=== PATIENT | female | born 1960 | race Caucasian/White ===

== ENCOUNTER 2018-03-23 17:58 | Emergency (ER) | payer MEDICAID, OTHER ==
[~2018-03-23] VITALS: Ht 165.1 cm; Wt 79.4 kg
[~2018-03-23 17:58] MED LIST: FOLI1TAB16 PO; FURO40TA5 PO; LEVO50TA8 PO; SPIR50TA5 PO; THIA100T13 PO
--- NOTE | 2018-03-23 18:21 | NUR ---
C/O "THROWING UP BLOOD SINCE THIS AM" ALCOHOL CONSUMPTION LAST NIGHT. CHRONIC DRINKER. NAD NOTED. RR EVEN AND UNLABORED. VSS. PENDING MD LOPEZ.
[2018-03-23] MEDS ORDERED: PANTOPRAZOLE 80 MG in IV NS 0.9% 100 ML IV ONE (18:30)
[2018-03-23] MEDS ORDERED: ONDANSETRON HCL/PF - ER 4 MG/2 ML VIAL IV ONE (18:30)
[2018-03-23] MEDS ORDERED: ONDANSETRON HCL/PF 4 MG/2 ML VIAL ONE (18:42)
[2018-03-23] MEDS ORDERED: PANTOPRAZOLE 40 MG VIAL ONE (18:43)
[2018-03-23 18:48] LABS: BASOPHILS % (AUTO) 0.8 % (0.0-2.0); EOSINOPHILS % (AUTO) 0.7 % (0.0-6.0); HEMATOCRIT 41 % (33-45); HEMOGLOBIN 13.5 g/dL (11.5-14.8); LYMPHOCYTES # (AUTO) 1.7 /CMM (0.8-4.8); LYMPHOCYTES % (AUTO) 31.2 % (20.0-44.0); MEAN CORPUSCULAR HGB CONC 33 g/dl (31.0-36.0); MEAN CORPUSCULAR VOLUME 87 fL (82-100); MONOCYTES # (AUTO) 0.3 /CMM (0.1-1.30); MONOCYTES % (AUTO) 5.9 % (2.0-12.0); NEUTROPHILS # (AUTO) 3.3 /CMM (1.8-8.9); NEUTROPHILS % (AUTO) 61.4 % (43.0-81.0); PLATELET COUNT (AUTO) 142 /CMM (150-450); RDW COEFFICIENT OF VARIATION 17.2 (11.5-15.0); RED BLOOD CELL COUNT(AUTO) 4.68 MIL/uL (4.0-5.2); WHITE BLOOD COUNT (AUTO) 5.3 K/uL (4.3-11.0)
[2018-03-23 19:03] LABS: INR 0.97 (0.85-1.15)
[2018-03-23 19:06] LABS: ALBUMIN 3.7 g/dL (3.4-5.0); BILIRUBIN,DIRECT 0.2 mg/dL (0.0-0.2); BILIRUBIN,TOTAL 1.5 mg/dL (0.2-1.0); CALCIUM, SERUM 8.6 mg/dL (8.5-10.1); CREATININE 0.7 mg/dL (0.6-1.3); POTASSIUM 4.1 mmol/L (3.5-5.1); TOTAL PROTEIN, SERUM 7.4 g/dL (6.4-8.2)
--- NOTE | 2018-03-23 19:19 | NUR ---
RECEIVED REPORT FROM RAULITO MAYER FOR DENIA. PT LAYING IN BED WITH NO S/S OF DISTRESS NOTED. VSS
--- NOTE | 2018-03-23 20:48 | NUR ---
Patient discharged to home in stable condition. Written and verbal after care instructions given. Patient verbalizes understanding of instruction.IV removed. Catheter intact and site benign. Pressure and 4x4 applied to site. No bleeding noted. VSS UPON DISCHARGE
[2018-03-23 20:49] VITALS: BP 143/92
== END 2018-03-23 20:50 | disposition home or self-care (01) ==
LOC: ER 18:00
DX: K29.20 Alcoholic gastritis without bleeding (principal); F10.10 Alcohol abuse, uncomplicated; D69.6 Thrombocytopenia, unspecified; E03.9 Hypothyroidism, unspecified; K74.60 Unspecified cirrhosis of liver; K85.90 Acute pancreatitis without necrosis or infection, unspecified; F17.200 Nicotine dependence, unspecified, uncomplicated
CPT/HCPCS: 36415; 71045-TC; 80048-TC; 80076-TC; 83690-TC; 85025-TC; 85730-TC; 86850-TC; A4216; A4606; C9113; J2405; J7030; Z7610

== ENCOUNTER 2018-05-16 15:53 | Inpatient (IN) | payer OTHER ==
[~2018-05-16] VITALS: Ht 165.1 cm; Wt 84.4 kg
--- NOTE | 2018-05-16 15:57 | NUR ---
A/OX3, AMBULATORY IN A STEADY GAIT W/ C/O EPIGASTRIC PAIN X 2 HRS AGO, N/V. PT ADMITS TO DRINKING ALCOHOL THIS AM. APPEARS ANXIOUS, EMOTIONAL. NAD VSS RR EVEN AND UNLABORED. SKIN IS WARM AND NON DIAPHORETIC. PENDING ER MD LOPEZ
[2018-05-16] MEDS ORDERED: MAG HYDROX/AL HYDROX/SIMETH 30 ML UDC ONE (16:18)
[2018-05-16] MEDS ORDERED: PANTOPRAZOLE 40 MG VIAL ONE (16:18)
[2018-05-16 16:24] LABS: BASOPHILS % (AUTO) 0.3 % (0.0-2.0); EOSINOPHILS % (AUTO) 0.3 % (0.0-6.0); HEMATOCRIT 42 % (33-45); HEMOGLOBIN 13.7 g/dL (11.5-14.8); LYMPHOCYTES % (AUTO) 12.2 % (20.0-44.0); MEAN CORPUSCULAR HEMOGLOBIN 29 PG (26.0-33.0); MEAN CORPUSCULAR HGB CONC 33 g/dl (31.0-36.0); MEAN CORPUSCULAR VOLUME 90 fL (82-100); MONOCYTES # (AUTO) 0.5 /CMM (0.1-1.30); MONOCYTES % (AUTO) 5.9 % (2.0-12.0); NEUTROPHILS # (AUTO) 6.7 /CMM (1.8-8.9); NEUTROPHILS % (AUTO) 81.3 % (43.0-81.0); PLATELET COUNT (AUTO) 145 /CMM (150-450); RDW COEFFICIENT OF VARIATION 15.5 (11.5-15.0); RED BLOOD CELL COUNT(AUTO) 4.69 MIL/uL (4.0-5.2); WHITE BLOOD COUNT (AUTO) 8.2 K/uL (4.3-11.0)
[2018-05-16] MEDS ORDERED: ONDANSETRON HCL/PF 4 MG/2 ML VIAL ONE ×2 (16:30→18:44)
[2018-05-16] MEDS ORDERED: MAG HYDROX/AL HYDROX/SIMETH 30 ML UDC PO ONE (16:30)
[2018-05-16] MEDS ORDERED: PANTOPRAZOLE 40 MG VIAL IV ONE (16:30)
[2018-05-16 16:33] LABS: APPEARANCE,URINE Clear (CLEAR); BILIRUBIN,URINE SMALL (NEGATIVE); BLOOD, URINE Negative Ery/uL (NEGATIVE); COLOR,URINE Yellow (YELLOW); KETONES,URINE Trace (NEGATIVE); LEUKOCYTE ESTERASE ,URINE Negative (NEGATIVE); NITRITE, URINE Negative (NEGATIVE); PH,URINE 5.5 (5.0-8.0); PROTEIN,URINE Trace mg/dl (NEGATIVE); UGLUCOSE Negative (NEGATIVE); UROBILINOGEN,URINE 0.2 EU/dL (0.2)
[2018-05-16 16:35] LABS: CREATININE 0.8 mg/dL (0.6-1.3); POTASSIUM 3.7 mmol/L (3.5-5.1)
[2018-05-16 16:37] LABS: BACTERIA,URINE Few /HPF (None Seen); RBC,URINE 0-2 /HPF (0-2); WBC,URINE 0-2 /HPF (0-3)
[2018-05-16 16:38] LABS: SQUAMOUS EPITHELIAL CELL,UR Moderate /HPF (None Seen)
[2018-05-16 16:41] LABS: ALBUMIN 3.7 g/dL (3.4-5.0); BILIRUBIN,DIRECT 0.7 mg/dL (0.0-0.2); BILIRUBIN,TOTAL 2.1 mg/dL (0.2-1.0); TOTAL PROTEIN, SERUM 7.2 g/dL (6.4-8.2)
[2018-05-16] MEDS ORDERED: ONDANSETRON HCL/PF - ER 4 MG/2 ML VIAL IV ONE ×2 (17:00→19:00)
--- NOTE | 2018-05-16 17:41 | NUR ---
US TECH AT BS.
[2018-05-16] MEDS ORDERED: KETOROLAC TROMETHAMINE 15 MG/ML VIAL ONE (18:44)
[2018-05-16] MEDS ORDERED: KETOROLAC TROMETHAMINE INJ 30 MG/ML VIAL IV ONE (19:00)
--- NOTE | 2018-05-16 19:16 | NUR ---
REPORT RECEIVED FROM RAULITO ASHLEY FOR DENIA.
--- NOTE | 2018-05-16 19:25 | NUR ---
REPORT GIVEN TO JUSTIN CABEZAS FOR DENIA.
[2018-05-16] MEDS ORDERED: CEFOXITIN 1 G VIAL IV ONE (19:30)
[2018-05-16] MEDS ORDERED: CEFOXITIN 1 G VIAL ONE (19:43)
--- NOTE | 2018-05-16 20:44 | NUR ---
REPORT GIVEN TO RAULITO MAST FOR DENIA.
--- NOTE | 2018-05-16 20:49 | NUR ---
PT TRANSPORTED VIA TO [facility] WITH EMT. VSS.
[2018-05-16 21:00] VITALS: BP 127/66
--- NOTE | 2018-05-16 21:27 | NUR ---
MS/RN OPENING NOTES PT RECEIVED FROM ER VIA WHEELCHAIR. PT IS A/OX3. ON ROOM AIR, BREATHING EVEN AND UNLABORED. DENIES SOB. NOTES EPIGASTRIC PAIN CHARACTERIZED LIKE SEVERE HEART BURN. IV TO LEFT HAND PATENT AND INTACT. ORIENTED PT TO ROOM AND CALL LIGHT. BED IN LOW/LOCKED POSITION WITH CALL LIGHT IN REACH. SIDE RAILS UPX2. WILL CONTINUE TO MONITOR
[2018-05-16] MEDS ORDERED: ACETAMINOPHEN 325 MG TABLET PO PRN (22:00)
[2018-05-16] MEDS ORDERED: Z GUARD REMEDY 2 OZ OINT TP PRN (22:00)
[2018-05-16] MEDS ORDERED: MAG HYDROX/AL HYDROX/SIMETH 30 ML UDC PO PRN (22:00)
[2018-05-16] MEDS ORDERED: MAGNESIUM HYDROXIDE 30 ML UDC PO PRN (22:00)
[2018-05-16] MEDS: MORPHINE SULFATE INJ 2 MG/ML DISP.SYRIN IV PRN (22:17)
[2018-05-16] MEDS: IV NS 0.9% 1,000 ML IV PRN (22:17)
[2018-05-16] MEDS ORDERED: CEFTRIAXONE 1 G VIAL ONE (22:31)
[2018-05-16] MEDS: CEFTRIAXONE 1 G in IV NS 0.9% 50 ML IV SCH (22:35)
[2018-05-17] MEDS: MORPHINE SULFATE INJ 2 MG/ML DISP.SYRIN IV PRN ×4 (03:47→20:44)
--- NOTE | 2018-05-17 03:47 | NUR ---
MS RN NOTES AWAKE,C/OA ABDOMINAL PAIN 9/10 ON PAIN SCALE.MEDICATED WITH MORPHINE 2MG IVP ORDERED,PER PATIENT REQUEST.
--- NOTE | 2018-05-17 06:35 | NUR ---
MS/RN CLOSING NOTES PT AWAKE, ON ROOM AIR, BREATHING EVEN AND UNLABORED. DENIES SOB BUT WITH C/O OF MIDEPIGASTRIC PAIN WITH ASSOCIATED NAUSEA. ADMINISTERED PRN ZOFRAN AND MORPHINE ORDERED. IV TO LEFT HAND PATENT AND INTACT RUNNING IVF ORDERED. KEPT COMFORTABLE DURING SHIFT. ALL NEEDS MET. BE REMAINS IN LOW.LOCKED POSITION WITH CALL LIGHT IN REACH. SIDE RAILS UPX2. WILL ENDORSE TO DAY SHIFT RN DENIA.
[2018-05-17] MEDS: ONDANSETRON HCL/PF 4 MG/2 ML VIAL IVP PRN ×2 (06:42→20:44)
--- NOTE | 2018-05-17 07:05 | NUR ---
MS/RN NOTES PT MOVED TO ROOM 208-1 WITH ALL BELONGINGS.
[2018-05-17 07:06] LABS: BASOPHILS % (AUTO) 0.5 % (0.0-2.0); EOSINOPHILS % (AUTO) 0.5 % (0.0-6.0); HEMATOCRIT 39 % (33-45); HEMOGLOBIN 12.9 g/dL (11.5-14.8); LYMPHOCYTES # (AUTO) 1.2 /CMM (0.8-4.8); LYMPHOCYTES % (AUTO) 31.6 % (20.0-44.0); MEAN CORPUSCULAR HEMOGLOBIN 31 PG (26.0-33.0); MEAN CORPUSCULAR HGB CONC 34 g/dl (31.0-36.0); MEAN CORPUSCULAR VOLUME 92 fL (82-100); MONOCYTES # (AUTO) 0.3 /CMM (0.1-1.30); MONOCYTES % (AUTO) 7.6 % (2.0-12.0); NEUTROPHILS # (AUTO) 2.2 /CMM (1.8-8.9); NEUTROPHILS % (AUTO) 59.8 % (43.0-81.0); PLATELET COUNT (AUTO) 110 /CMM (150-450); RED BLOOD CELL COUNT(AUTO) 4.21 MIL/uL (4.0-5.2); WHITE BLOOD COUNT (AUTO) 3.7 K/uL (4.3-11.0)
[2018-05-17 07:07] LABS: ALBUMIN 3.2 g/dL (3.4-5.0); BILIRUBIN,DIRECT 0.3 mg/dL (0.0-0.2); BILIRUBIN,TOTAL 2.6 mg/dL (0.2-1.0); CALCIUM, SERUM 8.1 mg/dL (8.5-10.1); CREATININE 0.8 mg/dL (0.6-1.3); MAGNESIUM 1.8 mg/dL (1.8-2.4); PHOSPHORUS 3.6 mg/dL (2.5-4.9); POTASSIUM 3.5 mmol/L (3.5-5.1); TOTAL PROTEIN, SERUM 6.4 g/dL (6.4-8.2)
[2018-05-17 07:14] LABS: THYROID STIMULATING HORMONE 0.927 uIU/mL (0.358-3.74)
[2018-05-17 08:00] VITALS: BP 121/66
--- NOTE | 2018-05-17 08:00 | NUR ---
RN NOTES RECEIVED PATIENT IN THE ROOM A/O X3/4, PATIENT HAS NO ACUTE RESPIRATORY DISTRESS, REFUSED PAIN AT THIS TIME. INFUSING NS AT LEFT HAND INTACT, PATIENT AMBULATORY SELF CARE, SCHEDULED MEDICATION ADMINISTERED, ALSO PATIENT NPO. CALL LIGHT WITHIN TO REACH, SAFETY PRECAUTION MAINTAINED ALL THE TIME.
[2018-05-17] MEDS: LEVOTHYROXINE SODIUM 50 MCG TABLET PO SCH (08:40)
[2018-05-17] MEDS: PANTOPRAZOLE 40 MG VIAL IV SCH (08:40)
--- NOTE | 2018-05-17 11:32 | NUR ---
RN NOTES ADMINISTERED MORPHINE SULF 2 MG/ML IV PUSH PER PATIENT REQUEST FOR PAIN 8/10 IN ABDOMEN, V/S TAKEN BP 121/66, P-60, CONTINUED MONITORING.
--- NOTE | 2018-05-17 14:51 | NUR ---
RN NOTES ADMINISTERED TYLENOL 650 MG PO PRN FOR ABDOMINAL PAIN 5/10 PER PATIENT REQUEST, PATIENT CRYING, ANXIOUS. PATIENT LADLE POURER FOR HIDA TEST BY CUSHION WORKER.
[2018-05-17 16:21] VITALS: BP 116/75
[2018-05-17] MEDS: HYDROCODONE/APAP 5/325MG 1 EACH TABLET PO PRN (16:54)
--- NOTE | 2018-05-17 16:54 | NUR ---
rn notes administered narco 5/325 mg po prn fot abdominal pain 10 per patient request, v/s taken bp-116/75, p-52, family next to the bed, call light within to reach.
--- NOTE | 2018-05-17 18:30 | NUR ---
RN NOTES CALLED DR MAYS ABOUT IMAGING RESULT, AND GET ORDER CLEAR LIQUID WITH ADVANCE TOLERATED, ALSO MD GOING TO FOLLOW PATIENT TOMORROW. ORDER TAKEN AND CARRIED OUT. MEDICATION WERE ADMINISTERED FOR PAIN EFFECTIVE. CALL LIGHT WITHIN TO REACH. ENDORSED ONCOMING NURSE FOR PLAN OF CARE.
[2018-05-17 20:00] VITALS: BP_SYST 119; BP_SYST 140; BP_DIAS 50; BP_DIAS 72
--- NOTE | 2018-05-17 20:36 | NUR ---
ms/rn opening notes PATIENT IN BED, AWAKE, ALERT X3, ABLE TO VERBALIZE NEEDS, REPORTED PAIN IN ABDOMEN AND CONCERN WITH STOMACH BEING ENLARGED. DISCUSSED PLAN OF CARE AND PAIN MEDICATION TO BE GIVEN PATIENT VERBALIZED, WITH GRIMACE AND GUARDING, TOLERTAED JELLO AND SOME APPLE JUICE, LAST BM WAS YESTERDAY, SAID HAVE NOT PASSED GAS. STOMACH NON DISTENDED, SOFT. WILL MONITOR,
--- NOTE | 2018-05-17 20:51 | NUR ---
MS/RN NOTES REPORTED NAUSEA, ZOFRAN IVPGIVEN SLOWLY, TOLERATED WELL WILL MONITOR.
[2018-05-17] MEDS: CEFTRIAXONE 1 G in IV NS 0.9% 50 ML IV SCH (22:09)
[2018-05-18] MEDS: HYDROCODONE/APAP 5/325MG 1 EACH TABLET PO PRN ×2 (00:43→09:42)
--- NOTE | 2018-05-18 00:46 | NUR ---
MS/RN NOTES PATIENT REPORTED DISCOMFORT AND SOME PAIN, WITH DIFFICULTY SLEEPING, KEPT ROOM QUIET, AND REQUEST TO F/U IN AM FOR NEEDED MEDICATION TO HELP HER SLEEP. PAIN MEDICATION PO NORCO 5-325 MG GIVEN, WILL MONITOR PAIN RELIEF.
[2018-05-18] MEDS: MORPHINE SULFATE INJ 2 MG/ML DISP.SYRIN IV PRN (04:59)
[2018-05-18] MEDS: IV NS 0.9% 1,000 ML IV PRN (05:39)
--- NOTE | 2018-05-18 06:38 | NUR ---
208-1 MS/RN NOTES PATIENT SLEPT INTERMITTENTLY DUE TO SOME DISCOMFORT IN ABDOMEN, TO FOLLOW UP SLEEP MEDICATION NEEDED REQUEST IN AM F/U, RESPIRATIONS EVEN AND UNLABORED, CAN AMBULATE TO BATHROOM, PAIN MONITORING, CALM AND COOPERATIVE TO CARE. CALL LIGHTS WITHIN REACH, BED IN LOCK POSIITON WILL MONITOR.
--- NOTE | 2018-05-18 07:30 | NUR ---
RN NOTES PATIENT AWAKE ALERT AND VERBALLY RESPONSIVE ABLE TO MAKE NEEDS KNOWN. RESPIRATIONS EVEN AND UNLABORED, IN NO APPARENT PAIN OR DISCOMFORT. IV ACCESS PATENT AND INTACT, NO REDNESS OR INFILTRATION NOTED. BED IN LOCKED POSITION, SAFETY MEASURES IN PLACE, CALL LIGHT WITHIN EASY REACH WILL CONTINUE TO MONITOR
[2018-05-18] MEDS: ONDANSETRON HCL/PF 4 MG/2 ML VIAL IVP PRN (07:53)
[2018-05-18] MEDS: LEVOTHYROXINE SODIUM 50 MCG TABLET PO SCH (07:53)
[2018-05-18 08:00] VITALS: BP 118/62
[2018-05-18] MEDS: PANTOPRAZOLE 40 MG VIAL IV SCH (08:01)
--- NOTE | 2018-05-18 12:15 | NUR ---
RN NOTES/MD VISIT PT SEEN AND EXAMINED BY DR. MAYS PER MD FORD TO HAVE LOW FAT LOW CHOLESTEROL DIET, OKAY TO DC FROM SURGICAL STAND POINT. WILL MAKE DR BAGLEY AWARE
--- NOTE | 2018-05-18 14:30 | NUR ---
RN NOTES/MD VISIT/ DISCHARGE PT SEEN AND EXAMINED BY DR. BAGLEY RELAYED DR. MAYS'S CONSULT. PER DR. BAGLEY PT MAY BE DISCHARGED. PT AWAKE ALERT AND VERBALLY RESPONSIVE ABLE TO MAKE NEEDS KNOWN. RESPIRATIONS EVEN AND UNLABORED, DENIES ANY PAIN OR DISCOMFORT. ALL DISCHARGE INSTRUCTIONS REVIEWED WITH PT WITH NOTED VERBAL UNDERSTANDING. NO PICTURES OF SKIN NEEDED. ALL BELONGINGS ACCOUNTED FOR . IV ACCESS AND ID BAND REMOVED WITH NO ASE NOTED. PT ASSISTED TO LOBBY BY BEREAVEMENT COORDINATOR, DISCHARGED IN STABLE CONDITION
== END 2018-05-18 14:30 | disposition home or self-care (01) ==
LOC: ER 15:54 → MEDSG2 20:22
PROVIDERS: ADMIT Nurse Practitioner Acute Care; ATTEND Nurse Practitioner Acute Care
DX: K81.0 Acute cholecystitis (principal); K76.6 Portal hypertension; D69.6 Thrombocytopenia, unspecified; K70.30 Alcoholic cirrhosis of liver without ascites; K57.90 Diverticulosis of intestine, part unspecified, without perforation or abscess without bleeding; E03.9 Hypothyroidism, unspecified; Z79.899 Other long term (current) drug therapy; E80.6 Other disorders of bilirubin metabolism; Z72.89 Other problems related to lifestyle; R16.1 Splenomegaly, not elsewhere classified
CPT/HCPCS: 36415; 74181-TC; 76705-TC; 78226; 80048-TC; 80061-TC; 80076-TC; 81000-TC; 83605-TC; 83690-TC; 83735-TC; 84100-TC; 84443-TC; 85025-TC; 87081-TC; A4216; A4606; A9537; C9113; J0694; J0696; J1885; J2270; J2405; J7030; Z7610